=== PATIENT | female | born 1975 | race Caucasian/White ===

== ENCOUNTER 2016-12-26 10:01 | Emergency (ER) | payer OTHER ==
[~2016-12-26] VITALS: Ht 172.7 cm; Wt 65.0 kg
[2016-12-26 10:15] VITALS: BP 125/79; PULSE 108; RESP 16; TEMP 98.4; O2SAT 96
[2016-12-26] MEDS ORDERED: ESTR2TAB PO (10:28)
[2016-12-26] MEDS ORDERED: PROG100C PO (10:28)
[2016-12-26] MEDS ORDERED: FINA5TAB2 PO (10:28)
[2016-12-26] MEDS ORDERED: SPIR100T PO (10:28)
[2016-12-26 11:01] LABS: BASOPHIL % 0.2 % (0.0-2.0); EOSINOPHIL # 0.1 TH/MM3 (0-0.4); EOSINOPHIL % 0.6 % (0.0-4.0); HEMATOCRIT 43.8 % (35.0-46.0); HEMO FLAGS DIFF FINAL; LYMPH % 13.3 % (9.0-44.0); LYMPHOCYTE # 2.3 TH/MM3 (1.0-4.8); MEAN CELL VOLUME 98.3 FL (80.0-100.0); MEAN CORPUSCULAR HEMOGLOBIN 33.1 PG (27.0-34.0); MEAN CORPUSCULAR HGB CONC 33.7 % (32.0-36.0); MONO % 6.2 % (0.0-8.0); NEUT % 79.7 % (16.0-70.0); PLATELET COUNT 340 TH/MM3 (150-450); RED BLOOD COUNT 4.45 MIL/MM3 (4.00-5.30); RED CELL DISTRIBUTION WIDTH 13.3 % (11.6-17.2); WHITE BLOOD COUNT 17.6 TH/MM3 (4.0-11.0)
[2016-12-26 11:22] LABS: ALT (GPT) 14 U/L (10-53); ANION GAP 8 MEQ/L (5-15); AST (GOT) 12 U/L (15-37); BICARBONATE 25.2 MEQ/L (21.0-32.0); BLOOD UREA NITROGEN 7 MG/DL (7-18); CHLORIDE 104 MEQ/L (98-107); GLOMERULAR FILTRATION RATE 69 ML/MIN (>89); POTASSIUM 3.8 MEQ/L (3.5-5.1); SODIUM (NA) 137 MEQ/L (136-145)
[2016-12-26 11:24] LABS: ALKALINE PHOSPHATASE 73 U/L (45-117); TOTAL BILIRUBIN ADULT 0.5 MG/DL (0.2-1.0)
[2016-12-26 11:27] LABS: ACETAMINOPHEN LESS THAN 2.0 MCG/ML (10.0-30.0); ALCOHOL LESS THAN 3 MG/DL (0-5)
--- NOTE | 2016-12-26 11:33 | PD ---
HPI Chief Complaint: Psychiatric Symptoms Time Seen by Provider: 11:10 Travel History International Travel<30 days: No Contact w/Intl Traveler<30days: No Traveled to known affect area: No History of Present Illness HPI 41-year-old female that presents to the ED for evaluation of Ulloa act. Patient was Ulloa acted by police secondary to making suicidal statements and writing to suicidal also riding on herself stating that she is "a loser ". Patient has a history of PTSD and depression secondary to service. Patient states that she is also currently taking HRT. She denies any other medical issues. She denies any pain. She does have some self inflicting cuts to her left arm. She denies any other medical issues. No medications but and cervical which she ran out. She states that she is having a lot of family issues secondary to the family not caring for her anymore. Symptoms have been ongoing for sometime. States feeling suicidal but not homicidal. Denies any drugs or alcohol. PFSH Past Medical History Depression: Yes Respiratory: Yes (COPD) ?: Not Social History Alcohol Use: No Tobacco Use: No Substance Use: No Allergies-Medications (Allergen,Severity, Reaction): Coded Allergies: No Known Allergies (Unverified , 12/26/16) Reported Meds & Prescriptions Reported Meds & Active Scripts Active Reported Spironolactone 100 Mg Tab 100 Mg PO QID Finasteride 5 Mg Tab 1 Mg PO DAILY Do not crush. Estradiol 2 Mg Tab 4 Mg PO DAILY Progesterone Micronized 100 Mg Cap 200 Mg PO DAILY Review of Systems Except as stated in HPI: all other systems reviewed are Neg Physical Exam Narrative GENERAL: man with female characteristics SKIN: Warm and dry. HEAD: Atraumatic. Normocephalic. EYES: Pupils equal and round. No scleral icterus. No injection or drainage. ENT: No nasal bleeding or discharge. Mucous membranes pink and moist. NECK: Trachea midline. No JVD. CARDIOVASCULAR: Regular rate and rhythm. RESPIRATORY: No accessory muscle use. Clear to auscultation. Breath sounds equal bilaterally. GASTROINTESTINAL: Abdomen soft, non-tender, nondistended. Hepatic and splenic margins not palpable. MUSCULOSKELETAL: Extremities without clubbing, cyanosis, or edema. No obvious deformities. Full range of motion of the upper and lower extremities bilaterally. 2+ pulses bilaterally. NEUROLOGICAL: Awake and alert. No obvious cranial nerve deficits. Motor grossly within normal limits. Five out of 5 muscle strength in the arms and legs. Normal speech. PSYCHIATRIC: Depressed mood and affect; insight and judgment normal. Data Data Last Documented VS Vital Signs Date Time Temp Pulse Resp B/P (MAP) Pulse Ox O2 Delivery O2 Flow Rate FiO2 12/26/16 10:15 98.4 108 16 125/79 (94) 96 Orders Orders Complete Blood Count With Diff (12/26/16 10:36) Comprehensive Metabolic Panel (12/26/16 10:36) Psych Screen (12/26/16 10:36) Drug Screen, Random Urine (12/26/16 10:36) Alcohol (Ethanol) (12/26/16 10:36) Salicylates (Aspirin) (12/26/16 10:36) Tylenol (Acetaminophen) (12/26/16 10:36) Ed Urine Pregnancytest Poc (12/26/16 10:36) ^ Sitter (12/26/16 11:15) Labs Laboratory Tests Test 12/26/16 10:30 White Blood Count 17.6 TH/MM3 Red Blood Count 4.45 MIL/MM3 Hemoglobin 14.8 GM/DL Hematocrit 43.8 % Mean Corpuscular Volume 98.3 FL Mean Corpuscular Hemoglobin 33.1 PG Mean Corpuscular Hemoglobin Concent 33.7 % Red Cell Distribution Width 13.3 % Platelet Count 340 TH/MM3 Mean Platelet Volume 6.8 FL Neutrophils (%) (Auto) 79.7 % Lymphocytes (%) (Auto) 13.3 % Monocytes (%) (Auto) 6.2 % Eosinophils (%) (Auto) 0.6 % Basophils (%) (Auto) 0.2 % Neutrophils # (Auto) 14.0 TH/MM3 Lymphocytes # (Auto) 2.3 TH/MM3 Monocytes # (Auto) 1.1 TH/MM3 Eosinophils # (Auto) 0.1 TH/MM3 Basophils # (Auto) 0.0 TH/MM3 CBC Comment DIFF FINAL Differential Comment Salicylates Level 4.8 MG/DL Urine Opiates Screen NEG Urine Barbiturates Screen NEG Urine Amphetamines Screen NEG Urine Benzodiazepines Screen NEG Urine Cocaine Screen NEG Urine Cannabinoids Screen NEG MDM Medical Decision Making Medical Screen Exam Complete: Yes Emergency Medical Condition: Yes Medical Record Reviewed: Yes Interpretation(s) CBC Diagram 12/26/16 10:30 tox negative Differential Diagnosis Depression versus suicidal ideation versus anxiety versus adjustment disorder versus mood disorder versus bipolar disorder versus schizophrenia versus paranoid disorder versus psychosis versus substance abuse versus alcohol abuse versus alcohol induced psychosis versus homicidality addition versus cutting versus personality disorder Narrative Course 41-year-old female that presents to the ED for eval initial psychiatric evaluation. Patient was properly examined and was found to have signs and symptoms consistent with psychiatric illness. No sign of acute medical distress. Labs were drawn. Patient will be medically clear. Okay to be seen by psych. Mental health screening was discussed with the patient. Diagnosis Primary Impression: Depression Qualified Codes: F32.1 - Major depressive disorder, single episode, moderate Alexandr Stallings Dec 26, 2016 11:33
[2016-12-26 13:09] VITALS: BP 147/92; PULSE 93; RESP 18; O2SAT 97
[2016-12-26 15:08] VITALS: BP 124/64; PULSE 80; RESP 18; O2SAT 98
[2016-12-26 18:40] VITALS: BP 124/64; PULSE 80; RESP 18; O2SAT 98
--- NOTE | 2016-12-26 20:35 | PD ---
History of Present Illness Chief Complaint: Psychiatric Symptoms Time Seen by Provider: 17:00 Travel History International Travel<30 Days: No Contact w/Intl Traveler<30days: No Known affected area: No Legal Status Legal Status: Ulloa Act Ulloa Act Signed By: Daryl Ulloa Act Comment: BA signed by: MYLA AGUILAR Badge#[id number], Case#[id number] History of Present Illness: History of Present Illness HPI 41-year-old male who identifies as a female with a reported history of PTSD and depression that presents to the ED under a BA imitated by MYLA. Patient was Ulloa acted by police secondary to making suicidal statements via 2 notes to family as well as writing on herself stating that she is "a loser ". She did not make any attempts at harming self. The patient reports that she moved back to [facility] to live with her mother 2 weeks ago and that since she has been here she has felt that her family has been paying more attention to her friend. She is feeling " left out" and feeling like" my family like my friend better than they like me". She did not sent the letters that she wrote and states that " I learned in PTSD group that when I feel overwhelmed I am to write all my feelings down on paper. That is what I did . I wrote the notes and then I went t o sleep but my sister found the letters and called the police. . I have no intention of hurting myself. I have 3 daughters." I also lost a friend in [place] and I will never let him down by doing such thing". Denies any history of previous suicide attempt. EMR reviewed.No previous contact with [facility]. Toxicology is negative The patient is seen. He is alert, oriented male who identifies as a woman and is dressed in female clothing. Casually dressed with poor hygiene and poor dentition. No psychosis and no caroline. No objective symptoms of depression and denies feeling depressed. Denies suicidal ideation, intent or plan. PFSH Past Medical History Depression: Yes Psychiatric: Yes (PTSD, Rector ) Respiratory: Yes (COPD) Tetanus Vaccination: Unknown ?: Not Psychiatric History Psychiatric History Hx Psychiatric Treatment: denies inpatient tx. has been receiving outpateitn treatment for PTSD secondary to service. History of Inpatient Treatment: Yes Guns or firearms in home: No Social History Single. Never . 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 [employer]ector Hx Alcohol Use: No Hx Tobacco Use: Yes Hx Substance Use: No (Denies) Hx of Substance Use Treatment: No Family Psychiatric History Negative Allergies-Medications (Allergen,Severity, Reaction): Coded Allergies: No Known Allergies (Unverified , 12/26/16) Reported Meds & Prescriptions Reported Meds & Active Scripts Active Reported Spironolactone 100 Mg Tab 100 Mg PO QID Finasteride 5 Mg Tab 1 Mg PO DAILY Do not crush. Estradiol 2 Mg Tab 4 Mg PO DAILY Progesterone Micronized 100 Mg Cap 200 Mg PO DAILY Review of Systems Except as stated in HPI: all other systems reviewed are Neg Exam Alert: Yes [place]: Person (ox4) Mood: Calm Affect: Appropriate Speech: Clear, Logical Eye Contact: Normal Memory Intact: Comment (No impairmetn) Hallucinations: Other (Negative) Delusions: No Suicidal: Ideation (deneis any) Homicidal: Ideation (deneis any) Insight/Judgement Fair. Not imapired. MDM Medical Decision Making Medical Record Reviewed: Yes Assessment/Plan 41-year-old male who identifies as a female with a reported history of PTSD and depression that presents to the ED under a BA imitated by MYLA. Patient was Ulloa acted by police secondary to making suicidal statements via 2 notes to family as well as writing on herself stating that she is "a loser ". Patient admits to writing the letters as a way of managing her emotions and frustration s well as to get her family's attention. States that she learned in counseling to write her feelings instead of acting upon them. she is futre oriented. Denies any suicidality. Cleared for discharge at this time. [facility] Orders Complete Blood Count With Diff (12/26/16 10:36) Comprehensive Metabolic Panel (12/26/16 10:36) Psych Screen (12/26/16 10:36) Drug Screen, Random Urine (12/26/16 10:36) Alcohol (Ethanol) (12/26/16 10:36) Salicylates (Aspirin) (12/26/16 10:36) Tylenol (Acetaminophen) (12/26/16 10:36) ^ Sitter (12/26/16 11:15) Diet Regular Basic (12/26/16 Lunch) Results Vital Signs Date Time Temp Pulse Resp B/P (MAP) Pulse Ox O2 Delivery O2 Flow Rate FiO2 12/26/16 18:40 80 18 124/64 (84) 98 Room Air 12/26/16 17:23 12/26/16 15:08 80 18 124/64 (84) 98 Room Air 12/26/16 13:09 93 18 147/92 (110) 97 Room Air 12/26/16 10:15 98.4 108 16 125/79 (94) 96 Laboratory Tests Test 12/26/16 10:30 White Blood Count 17.6 Red Blood Count 4.45 Hemoglobin 14.8 Hematocrit 43.8 Mean Corpuscular Volume 98.3 Mean Corpuscular Hemoglobin 33.1 Mean Corpuscular Hemoglobin Concent 33.7 Red Cell Distribution Width 13.3 Platelet Count 340 Mean Platelet Volume 6.8 Neutrophils (%) (Auto) 79.7 Lymphocytes (%) (Auto) 13.3 Monocytes (%) (Auto) 6.2 Eosinophils (%) (Auto) 0.6 Basophils (%) (Auto) 0.2 Neutrophils # (Auto) 14.0 Lymphocytes # (Auto) 2.3 Monocytes # (Auto) 1.1 Eosinophils # (Auto) 0.1 Basophils # (Auto) 0.0 CBC Comment DIFF FINAL Differential Comment Blood Urea Nitrogen 7 Creatinine 0.91 Random Glucose 94 Total Protein 7.6 Albumin 3.7 Calcium Level 9.3 Alkaline Phosphatase 73 Aspartate Amino Transf (AST/SGOT) 12 Alanine Aminotransferase (ALT/SGPT) 14 Total Bilirubin 0.5 Sodium Level 137 Potassium Level 3.8 Chloride Level 104 Carbon Dioxide Level 25.2 Anion Gap 8 Estimat Glomerular Filtration Rate 69 Salicylates Level 4.8 Urine Opiates Screen NEG Acetaminophen Level LESS THAN 2.0 Urine Barbiturates Screen NEG Urine Amphetamines Screen NEG Urine Benzodiazepines Screen NEG Urine Cocaine Screen NEG Urine Cannabinoids Screen NEG Ethyl Alcohol Level LESS THAN 3 Diagnosis Primary Impression: Adjustment disorder Psychiatrically Cleared: Yes Referrals: [facility] call for appointment Departure Forms: Tests/Procedures Patient Instructions: General Instructions, Mood Disorders (ED), Medical Clearance for Psychiatric Care (ED) Additional Instructions: Dx: Adjustment Disorder Please return to ED if symptoms worsen. Med/ Other Pt Specific Info: No Change to Meds Disposition: 01 DISCHARGE HOME Condition: Stable Problem Qualifiers Primary Impression: Adjustment disorder Qualified Codes: F43.21 - Adjustment disorder with depressed mood Lis Howe Dec 26, 2016 20:35
== END 2016-12-26 18:42 | disposition home or self-care (01) ==
LOC: NEPC 10:01 → NEPJ 18:42
DX: F43.21 Adjustment disorder with depressed mood (principal); F43.10 Post-traumatic stress disorder, unspecified; J44.9 Chronic obstructive pulmonary disease, unspecified; Z87.891 Personal history of nicotine dependence; Z56.0 Unemployment, unspecified
CPT/HCPCS: 80053; 80307; 85025; 99285